=== PATIENT | male | born 1970 | race American Indian/Alaskan Native ===

== ENCOUNTER 2018-07-31 19:43 | Emergency (ER) | payer OTHER ==
--- NOTE | 2018-07-31 20:27 | EDM.PDOC ---
ED HPI GENERAL MEDICAL PROBLEM - General Chief Complaint: Lower Extremity Injury/Pain Stated Complaint: INJURED ANKLE Time Seen by Provider: 07/31/18 20:21 - History of Present Illness INITIAL COMMENTS - FREE TEXT/NARRATIVE: HISTORY AND PHYSICAL: History of present illness: Patient's 47-year-old male presents with concern of acute left ankle injury he states he injured this yesterday when he twisted it and hit it against the wall he's had pain redness and swelling since. He states his ankle prior to this was normal and without any redness swelling Review of systems: As per history of present illness and below otherwise all systems reviewed and negative. Past medical history: As per history of present illness and as reviewed below otherwise noncontributory. Surgical history: As per history of present illness and as reviewed below otherwise noncontributory. Social history: No reported history of drug or alcohol abuse. Family history: As per history of present illness and as reviewed below otherwise noncontributory. Physical exam: HEENT: Atraumatic, normocephalic, pupils reactive, negative for conjunctival pallor or scleral icterus, mucous membranes moist, throat clear, neck supple, nontender, trachea midline. Lungs: Clear to auscultation, breath sounds equal bilaterally, chest nontender. Heart: S1S2, regular, negative for clicks, rubs, or JVD. Abdomen: Soft, nondistended, nontender. Negative for masses or hepatosplenomegaly. Negative for costovertebral tenderness. Pelvis: Stable nontender. Genitourinary: Deferred. Rectal: Deferred. Extremities: Patient has erythema swelling and tenderness in region of the lateral malleolus" Achilles tendon is normal no proximal fibular tenderness Neuro: Awake, alert, oriented. Cranial nerves II through XII unremarkable. Cerebellum unremarkable. Motor and sensory unremarkable throughout. Exam nonfocal. Diagnostics: X-ray left ankle Therapeutics: Filippo wrap and crutches Impression: #1 acute left ankle injury Definitive disposition and diagnosis as appropriate pending reevaluation and review of above. - Related Data Allergies Allergy/AdvReac Type Severity Reaction Status Date / Time No Known Allergies Allergy Verified 07/31/18 20:16 Home Meds: Home Meds . [No Known Home Meds] 07/31/18 [History] Review of Systems - Review of Systems Review Of Systems: ROS reveals no pertinent complaints other than HPI. ED EXAM, GENERAL - Physical Exam Exam: See Below (See dictation) Course - Orders/Labs/Meds Orders: Active Orders 24 hr Category Date Time Status Ankle Min 3V Lt [CR] Stat Exams 07/31/18 19:58 Taken Departure - Departure Time of Disposition: 20:26 Disposition: Home, Self-Care 01 Condition: Good Clinical Impression: Ankle injury - Discharge Information Referrals: PCP,Unknown [Primary Care Provider] - Additional Instructions: The following information is given to patients seen in the emergency department who are being discharged to home. This information is to outline your options for follow-up care. We provide all patients seen in our emergency department with a follow-up referral. The need for follow-up, as well as the timing and circumstances, are variable depending upon the specifics of your emergency department visit. If you don't have a primary care physician on staff, we will provide you with a referral. We always advise you to contact your personal physician following an emergency department visit to inform them of the circumstance of the visit and for follow-up with them and/or the need for any referrals to a consulting specialist. The emergency department will also refer you to a specialist when appropriate. This referral assures that you have the opportunity for followup care with a specialist. All of these measure are taken in an effort to provide you with optimal care, which includes your followup. Under all circumstances we always encourage you to contact your private physician who remains a resource for coordinating your care. When calling for followup care, please make the office aware that this follow-up is from your recent emergency room visit. If for any reason you are refused follow-up, please contact the [facility] emergency department at and asked to speak to the emergency department charge nurse. [facility] - [facility] Professional Building [address] [place] [address], [address] [place] [address] Filippo wrap crutches as directed diclofenac as prescribed follow-up orthopedic clinic above as needed as discussed and return as needed as discussed - My Orders Last 24 Hours: My Active Orders 07/31/18 19:58 Ankle Min 3V Lt [CR] Stat - Assessment/Plan Last 24 Hours: My Active Orders 07/31/18 19:58 Ankle Min 3V Lt [CR] Stat
--- NOTE | 2018-07-31 20:52 | CR ---
INDICATION: pain INDICATION: Pain. TECHNIQUE: Left ankle, three views. COMPARISON: None FINDINGS: Bones: Alignment is normal. No fractures or bone lesions. Joint spaces: Unremarkable. Soft tissues: Soft tissue swelling overlying the lateral malleolus. IMPRESSION: There is no acute fracture. Left tibiotalar joint is in anatomic alignment. Dictated by Paolo Gaytan MD @ 07/31/2018 8:50:28 PM Dictated by: Paolo Gaytan MD @ 07/31/2018 20:50:36 (Electronically Signed)
== END 2018-07-31 21:11 | disposition home or self-care (01) ==
LOC: MW.ED 19:43
DX: S99.912A Unspecified injury of left ankle, initial encounter (principal); X50.1XXA Overexertion from prolonged static or awkward postures, initial encounter
CPT/HCPCS: 73610-26-LT; 73610-LT; 99283-25

== ENCOUNTER 2021-12-15 20:52 | Emergency (ER) | payer OTHER ==
[2021-12-15] MEDS ORDERED: Iopamidol 755 MG/ML 500 ML Multipack Bottle IVPUSH STA (21:15)
[2021-12-15] MEDS ORDERED: Ondansetron 4 MG/2 ML SDV IVPUSH ONE (21:38)
[2021-12-15] MEDS ORDERED: Sodium Chloride 0.9% 10 ML Syringe FLUSH PRN (21:39)
[2021-12-15] MEDS ORDERED: Sodium Chloride 0.9% 1,000 ML IV ONE (21:39)
[2021-12-15] MEDS ORDERED: Sodium Chloride 0.9% 2.5 ML Syringe FLUSH PRN (21:39)
[2021-12-15 22:26] LABS: CARBON DIOXIDE,CO2 24.3 mmol/L (21.0-32.0); POTASSIUM,K 3.6 mmol/L (3.5-5.1)
[2021-12-16] MEDS ORDERED: fentaNYL 50 MCG/ML SDV IVPUSH ONE ×2 (00:21→02:01)
== END 2021-12-16 03:00 ==
LOC: MW.ED 20:52
DX: S22.42XA Multiple fractures of ribs, left side, initial encounter for closed fracture (principal); S82.191A Other fracture of upper end of right tibia, initial encounter for closed fracture; S92.061A Displaced intraarticular fracture of right calcaneus, initial encounter for closed fracture; J93.9 Pneumothorax, unspecified; F17.210 Nicotine dependence, cigarettes, uncomplicated; Z88.5 Allergy status to narcotic agent; Z88.8 Allergy status to other drugs, medicaments and biological substances; Z20.822 Contact with and (suspected) exposure to COVID-19; V03.90XA Pedestrian on foot injured in collision with car, pick-up truck or van, unspecified whether traffic or nontraffic accident, initial encounter; Y92.410 Unspecified street and highway as the place of occurrence of the external cause
CPT/HCPCS: 36415; 70450; 71260; 72125; 72128; 72131; 73562; 73610; 73620; 73700; 74177; 80053; 80307; 83690; 84484; 85025; 85610; 87635; 93005; 96374; 96375; 96376; 99285; J2405; J3010; J3490; J7030; Q9967; 93010; 99291; U0002